=== PATIENT | male | born 1990 | race American Indian/Alaskan Native ===

== ENCOUNTER 2017-09-21 20:24 | Emergency (ER) | payer MEDICAID ==
[2017-09-21 20:30] VITALS: BP 132/80; PULSE 99; RESP 16; TEMP 98.8; O2SAT 98
--- NOTE | 2017-09-21 21:08 | ED PDOC ---
Arrival/HPI - General Historian: Patient - History of Present Illness Time/Duration: Other (3 days) Symptom Onset: Gradual Symptom Course: Worsening Quality: Aching, Throbbing Severity Level: 4 - General Chief Complaint: ENT Problem Time Seen by Provider: 09/21/17 21:04 - History of Present Illness Narrative History of Present Illness (Text): 09/21/17 21:38 27yr old male presents today with 3 day history of nasal congestion and left ear pain. no fever/chills. no dizziness or weakness. no vomiting/diarrhea. no cough. no medications taken for pain at home. pt c/o throbbing pain to left ear. Denies decreased hearing. no headache. no other complaints. (Meka Ty) Past Medical History - Provider Review Nursing Documentation Reviewed: Yes - Travel History Have you recently traveled outside [place] w/in the past 3 mons?: No - Infectious Disease Hx of Infectious Diseases: None - Psychiatric Hx Substance Use: No - Anesthesia Hx Anesthesia: No Family/Social History - Physician Review Nursing Documentation Reviewed: Yes Family/Social History: Unknown Family HX Smoking Status: Never Smoked Hx Alcohol Use: Yes Frequency of alcohol use: Socially Hx Substance Use: No Allergies/Home Meds Allergies/Adverse Reactions: Allergies amoxicillin Allergy (Verified 09/21/17 20:27) RASH Review of Systems - Review of Systems Constitutional: absent: Fatigue, Fevers ENT: Sinus Congestion, Other (left ear pain) Respiratory: absent: SOB, Cough Cardiovascular: absent: Chest Pain, Palpitations Gastrointestinal: absent: Abdominal Pain, Nausea, Vomiting Genitourinary Male: absent: Dysuria Musculoskeletal: absent: Arthralgias Skin: absent: Rash, Pruritis Neurological: absent: Headache, Dizziness Psychiatric: absent: Anxiety, Depression Physical Exam Vital Signs Reviewed: Yes Temperature: Afebrile Blood Pressure: Normal Pulse: Regular Respiratory Rate: Normal Appearance: Positive for: Well-Appearing, Non-Toxic, Comfortable Pain Distress: None Mental Status: Positive for: Alert and Oriented X 3 - Systems Exam Head: Present: Atraumatic Conjunctiva: Present: Normal Ears: Present: Erythema (+ left tm erythema and canal edema and erythema), Other (no mastoid tenderness; ). No: NORMAL TM, Normal Canal, TM Bulging, TM Perf Mouth: Present: Moist Mucous Membranes Vital Signs Temp Pulse Resp BP Pulse Ox 09/21/17 20:27 98.8 F 99 H 16 132/80 98 Medical Decision Making ED Course and Treatment: 09/21/17 21:49 Patient is nontoxic well appearing in no distress. Vital signs are stable motrin zithromax po I advised follow up with primary care physician within the next 2 days, advised to increase fluids take medications as prescribed and return if symptoms worsen persist or if new symptoms develop advised f/u with ENT specialist within the next 2 days. Patient verbalizes understanding of discharge instructions and need for immediate followup. all aspects of this case were discussed the attending of record. IMPRESSION; otitis media Motrin every 6 hours as needed for pain/fever reduction Increase fluids zithromax daily 4 days floxin otic; 10 drops to affected ear once daily flonase; 2 sprays each nostril once daily. Follow up primary care physician within the next 2 days Follow up with the ENT specialist within the next 2 days. Return if symptoms worsen persist or if the symptoms develop (Meka Ty) - Medication Orders Current Medication Orders: Discontinued Medications Azithromycin (Zithromax) 500 mg PO STAT STA PRN Reason: Protocol Stop: 09/21/17 21:05 Last Admin: 09/21/17 21:26 Dose: 500 mg Ibuprofen (Motrin Tab) 600 mg PO STAT STA Stop: 09/21/17 21:06 Last Admin: 09/21/17 21:26 Dose: 600 mg MAR Pain/Vitals Document 09/21/17 21:26 RD (Rec: 09/21/17 21:26 RD [facility] [id number]) Pain Reassessment Is This A Pain ReAssessment? No Sleep Is patient sleeping during reassessment? No Presence of Pain Presence of Pain Yes Disposition/Present on Arrival - Present on Arrival Any Indicators Present on Arrival: No History of DVT/PE: No History of Uncontrolled Diabetes: No Urinary Catheter: No History of Decub. Ulcer: No History Surgical Site Infection Following: None - Disposition Have Diagnosis and Disposition been Completed?: Yes Disposition Time: 21:05 Patient Plan: Discharge - Disposition Diagnosis: Otitis externa, Otitis media Disposition: HOME/ ROUTINE Condition: GOOD Discharge Instructions (ExitCare): Otitis Externa (ED), Otitis Media (ED) Additional Instructions: Motrin every 6 hours as needed for pain/fever reduction Increase fluids zithromax daily 4 days floxin otic; 10 drops to affected ear once daily flonase; 2 sprays each nostril once daily. Follow up primary care physician within the next 2 days Follow up with the ENT specialist within the next 2 days. Return if symptoms worsen persist or if the symptoms develop Prescriptions: Azithromycin [Zithromax] 250 mg PO DAILY #4 tab Fluticasone Nasal [Flonase] 2 spr NS DAILY #1 spr Ibuprofen [Motrin] 600 mg PO Q6H PRN #20 tab PRN Reason: pain/fever reduction Ofloxacin Otic 0.3% [Floxin 0.3% Otic Soln] 10 drop DAILY #1 bottle Referrals: Steph Armas MD [Staff Provider] - Follow up with primary Fernando Prince DO [Staff Provider] - Follow up with primary Forms: [facility] (Kosovan), WORK NOTE
== END 2017-09-21 21:26 | disposition home or self-care (01) ==
LOC: ED 20:24
DX: H60.92 Unspecified otitis externa, left ear (principal); H66.92 Otitis media, unspecified, left ear

== ENCOUNTER 2017-12-23 12:50 | Inpatient (IN) | payer MEDICAID ==
[2017-12-23 13:15] VITALS: BMI 23.7
[2017-12-23 14:22] LABS: BASO # 0.03 K/mm3 (0.0-2.0); BASO % 0.4 % (0.0-3.0); EOS # 0.1 (0.0-0.7); EOS % 0.7 % (1.5-5.0); GRAN # 3.93 (1.4-6.5); GRAN % 58.6 % (50.0-68.0); HEMOGLOBIN 15.3 g/dL (14.0-18.0); LYMPH # 2.2 (1.2-3.4); LYMPH % 32.7 % (22.0-35.0); MEAN CELL VOLUME 86.3 fl (80.0-105.0); MEAN CORPUSCULAR HEMOGLOBIN 29.9 pg (25.0-35.0); MEAN CORPUSCULAR HGB CONC 34.6 g/dl (31.0-37.0); MEAN PLATELET VOLUME 10.3 fl (7.0-11.0); MONO # 0.5 (0.1-0.6); MONO % 7.6 % (1.0-6.0); RBC 5.12 10^6/uL (3.5-6.1); RED CELL DISTRIBUTION WIDTH 13.1 % (11.5-14.5); WHITE BLOOD COUNT 6.7 10^3/ul (4.5-11.0)
[2017-12-23 14:43] LABS: ALB/GLOB RATIO 1.2 (1.1-1.8); ALBUMIN 4.2 g/dL (3.0-4.8); ALT/SGPT 52 U/L (7-56); AST/SGOT 63 U/L (17-59); BLOOD UREA NITROGEN 13 mg/dL (7-21); CALCIUM 9.9 mg/dL (8.4-10.5); GFR AFRICAN-AMERICAN > 60; GFR NON-AFRICAN AMERICAN > 60
[2017-12-23 15:24] LABS: ACETAMINOPHEN < 10.0 ug/ml (10.0-20.0); SALICYLATE < 1 mg/dL (2.0-20.0)
--- NOTE | 2017-12-23 15:24 | ED PDOC ---
Arrival/HPI - General Chief Complaint: Psychiatric Evaluation Time Seen by Provider: 12/23/17 13:12 Historian: Patient - History of Present Illness Narrative History of Present Illness (Text): 12/23/17 15:05 27yo male who present with complaint of depression and stress. Patient states he is having problem with his family members. 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 States he is trying to a solution, but feels stressed and depressed. Notes that he was placed on antipsychotic medications for unknown diagnosis. He denies SI/HI, hallucinations, any somatic complaint. Past Medical History - Provider Review Nursing Documentation Reviewed: Yes - Infectious Disease Hx of Infectious Diseases: None - Psychiatric Hx Bipolar Disorder: Yes Hx Substance Use: No - Anesthesia Hx Anesthesia: No Family/Social History - Physician Review Nursing Documentation Reviewed: Yes Family/Social History: Unknown Family HX Smoking Status: Never Smoked Hx Alcohol Use: Yes Hx Substance Use: No Allergies/Home Meds Allergies/Adverse Reactions: Allergies amoxicillin Allergy (Verified 12/23/17 13:12) RASH Home Medications: Home Meds Medication Instructions Recorded Confirmed Folic Acid 1 mg PO DAILY 12/23/17 12/23/17 Gabapentin [Neurontin] 300 mg PO DAILY 12/23/17 12/23/17 Risperidone [Risperdal] 1 mg PO DAILY 12/23/17 12/23/17 Valproic Acid [Depakene] 500 mg PO BID 12/23/17 12/23/17 Review of Systems - Physician Review All systems were reviewed & negative as marked: Yes - Review of Systems Constitutional: Normal Eyes: Normal ENT: Normal Respiratory: Normal Cardiovascular: Normal Gastrointestinal: Normal Genitourinary Male: Normal Musculoskeletal: Normal Skin: Normal Neurological: Normal Endocrine: Normal Hemo/Lymphatic: Normal Psychiatric: Depression Physical Exam Vital Signs Reviewed: Yes Vital Signs Temp Pulse Resp BP Pulse Ox 12/23/17 17:44 81 18 97 12/23/17 17:33 98.1 F 80 18 139/87 98 12/23/17 13:14 98.0 F 78 17 141/89 99 Temperature: Afebrile Blood Pressure: Normal Pulse: Regular Respiratory Rate: Normal Appearance: Positive for: Well-Appearing, Non-Toxic, Comfortable Pain Distress: None Mental Status: Positive for: Alert and Oriented X 3 - Systems Exam Head: Present: Atraumatic, Normocephalic Pupils: Present: PERRL Extroacular Muscles: Present: EOMI Conjunctiva: Present: Normal Mouth: Present: Moist Mucous Membranes Neck: Present: Normal Range of Motion Respiratory/Chest: Present: Clear to Auscultation, Good Air Exchange. No: Respiratory Distress, Accessory Muscle Use Cardiovascular: Present: Regular Rate and Rhythm, Normal S1, S2. No: Murmurs Abdomen: Present: Normal Bowel Sounds. No: Tenderness, Distention, Peritoneal Signs Back: Present: Normal Inspection Upper Extremity: Present: Normal Inspection. No: Cyanosis, Edema Lower Extremity: Present: Normal Inspection. No: Edema Neurological: Present: GCS=15, CN II-XII Intact, Speech Normal Skin: Present: Warm, Dry, Normal Color. No: Rashes Psychiatric: Present: Alert, Oriented x 3, Normal Insight, Normal Concentration , Depressed Mood Medical Decision Making ED Course and Treatment: 12/23/17 19:48 PT was medically cleared for psychiatric evaluation. He was seen in ED by PES augustin and admitted to Dr. Carrasco . - Lab Interpretations Lab Results: 12/23/17 14:09 12/23/17 14:09 Lab Results 12/23/17 15:30: Urine Opiates Screen Negative, Urine Methadone Screen Negative, Ur Barbiturates Screen Negative, Ur Phencyclidine Scrn Negative, Ur Amphetamines Screen Negative, U Benzodiazepines Scrn Negative, U Oth Cocaine Metabols Negative, U Cannabinoids Screen Negative 12/23/17 15:30: Urine Color Yellow, Urine Appearance Clear, Urine pH 7.0, Ur Specific [place] 1.010, Urine Protein Negative, Urine Glucose (UA) Negative, Urine Ketones Trace H, Urine Blood Negative, Urine Nitrate Negative, Urine Bilirubin Negative, Urine Urobilinogen 0.2, Ur Leukocyte Esterase Negative 12/23/17 14:09: Alcohol, Quantitative < 10 12/23/17 14:09: Salicylates < 1 L, Acetaminophen < 10.0 L 12/23/17 14:09: Sodium 141, Potassium 4.6, Chloride 103, Carbon Dioxide 25, Anion Gap 18, BUN 13, Creatinine 0.9, Est GFR ( Amer) > 60, Est GFR (Non- Af Amer) > 60, Random Glucose 85, Calcium 9.9, Total Bilirubin 0.4, AST 63 H, ALT 52, Alkaline Phosphatase 60, Total Protein 7.7, Albumin 4.2, Globulin 3.5, Albumin/Globulin Ratio 1.2 12/23/17 14:09: WBC 6.7, RBC 5.12, Hgb 15.3, Hct 44.2, MCV 86.3, MCH 29.9, MCHC 34.6, RDW 13.1, Plt Count 245, MPV 10.3, Gran % 58.6, Lymph % (Auto) 32.7, [place] % (Auto) 7.6 H, Eos % (Auto) 0.7 L, Baso % (Auto) 0.4, Gran # 3.93, Lymph # ( Auto) 2.2, [place] # (Auto) 0.5, Eos # (Auto) 0.1, Baso # (Auto) 0.03 - Medication Orders Current Medication Orders: Acetaminophen (Tylenol 325mg Tab) 650 mg PO Q4 PRN PRN Reason: Pain, Mild (1-3) Al Hydrox/Mg Hydrox/Simethicone (Maalox Plus 30 Ml) 30 ml PO DAILY PRN PRN Reason: Upset Stomach Diphenhydramine HCl (Benadryl) 50 mg IM Q6H PRN PRN Reason: Agitation Diphenhydramine HCl (Benadryl) 50 mg PO Q6H PRN PRN Reason: Agitation Divalproex Sodium (Depakote Dr (*Bid*)) 500 mg PO AMHS CHANTELLE PRN Reason: Protocol Gabapentin (Neurontin) 300 mg PO TID CHANTELLE PRN Reason: Protocol Haloperidol (Haldol) 5 mg PO Q6H PRN; Protocol PRN Reason: Agitation Haloperidol Lactate (Haldol) 5 mg IM Q6H PRN; Protocol PRN Reason: Agitation Lorazepam (Ativan) 2 mg PO Q6H PRN; Protocol PRN Reason: Anxiety Lorazepam (Ativan) 2 mg IM Q6H PRN; Protocol PRN Reason: Anxiety Magnesium Hydroxide (Milk Of Magnesia) 30 ml PO DAILY PRN PRN Reason: Constipation Risperidone (Risperdal Tab) 1 mg PO BID CHANTELLE PRN Reason: Protocol Risperidone (Risperdal Tab) 1 mg PO HS CHANTELLE PRN Reason: Protocol Zolpidem Tartrate (Ambien) 5 mg PO HS PRN; Protocol PRN Reason: Insomnia Disposition/Present on Arrival - Present on Arrival Any Indicators Present on Arrival: No History of DVT/PE: No History of Uncontrolled Diabetes: No Urinary Catheter: No History of Decub. Ulcer: No History Surgical Site Infection Following: None - Disposition Have Diagnosis and Disposition been Completed?: Yes Diagnosis: Depression Disposition: HOSPITALIZED Disposition Time: 18:00 Patient Plan: Admission Patient Problems: Current Active Problems Problem Status Onset Depression Acute Condition: FAIR
[2017-12-23 15:51] LABS: URINE APPEARANCE CLEAR (CLEAR); URINE BILIRUBIN NEGATIVE (NEGATIVE); URINE BLOOD NEGATIVE (NEGATIVE); URINE COLOR YELLOW (YELLOW); URINE GLUCOSE (UA) NEGATIVE (NEGATIVE); URINE LEUKOCYTE ESTERASE NEGATIVE Leu/uL (NEGATIVE); URINE PROTEIN NEGATIVE mg/dL (<30 mg/dL); URINE UROBILINOGEN 0.2 E.U./dL (<1 E.U./dL)
[2017-12-23 16:30] LABS: BARBITURATES, UR NEGATIVE (NEGATIVE); BENZODIAZEPINES, UR NEGATIVE (NEGATIVE); OPIATES, UR NEGATIVE (NEGATIVE); PHENCYCLIDINE, UR NEGATIVE (NEGATIVE)
[2017-12-23] MEDS ORDERED: Magnesium Hydroxide Susp 30 ml UD PO PRN (18:46)
[2017-12-23] MEDS ORDERED: Alum-Mag Hydrox-Simethicone Susp (30 mL) PO PRN (18:46)
--- NOTE | 2017-12-23 19:00 | PCM.BM ---
<Fernando Kamara - Last Filed: 12/23/17 18:59> Treatment Plan Problems - Problems identified on initial assessmt Hopelessness Date Initiated: 12/23/17 Time Initiated: 18:59 Assessment reference: NA Status: Active Priority: 1 Worthlessness Date Initiated: 12/23/17 Time Initiated: 18:59 Assessment reference: NA Status: Active Priority: 2 Ineffective Coping Date Initiated: 12/23/17 Time Initiated: 18:59 Assessment reference: NA Status: Active Priority: 3 Altered Sleep Patterns Date Initiated: 12/23/17 Time Initiated: 18:59 Assessment reference: NA Status: Active Priority: 4 <Lizzette Guevara - Last Filed: 12/24/17 15:23> Family Contact - Outside Agency [facility] involvment: Information-sharing Agency contact name: Keesha Johnson, therapist Agency contact number: [phone]
[2017-12-23] MEDS ORDERED: DiphenhydrAMINE 50 mg/ml Inj IM PRN (19:01)
[2017-12-23] MEDS: Divalproex 250 mg DR (BID formulation) PO SCH (21:24)
[2017-12-24 07:35] VITALS: RESP 20
[2017-12-24 08:24] LABS: GLUCOSE,FASTING 83 mg/dL (65-110); HDL CHOLESTEROL 43 mg/dL (29-60)
[2017-12-24 08:31] LABS: FREE T4 1.08 ng/dL (0.78-2.19)
[2017-12-24 08:34] LABS: LDL CHOLESTEROL 94 mg/dL (0-129)
[2017-12-24] MEDS: Divalproex 250 mg DR (BID formulation) PO SCH ×2 (09:56→22:07)
--- NOTE | 2017-12-24 11:35 | CARD ---
APPROVED REPORT EKG Measurement Heart [id number] <Conclusion> Sinus rhythm with marked sinus arrhythmia.
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
[2017-12-25] MEDS: Divalproex 250 mg DR (BID formulation) PO SCH ×2 (10:24→21:11)
[2017-12-25] MEDS: Multivitamin With Minerals Tab PO SCH (10:25)
--- NOTE | 2017-12-25 13:27 | PCM.PYCHPN ---
Psychiatric Progress Note - Psychiatric Progress Note Patient seen today, length of contact: 30min Patient Chief Complaint: " I feel little better" Problems Identified/Issues Discussed: Suicide/ homicide prevention, past psychiatric h/o, current psychiatric symptoms , medical problems, risk/benefits and alternatives of medications, medications compliance, coping strategies, substance abuse h/o, relapse prevention, importance of follow up with psychiatrist and therapist, discharge plan. Medical Problems: see HPI Diagnostic Results: 12/23/17 14:09 12/23/17 14:09 Lab Results 12/24/17 07:30: Free T4 1.08, TSH 3rd Generation 1.09 12/24/17 07:30: Valproic Acid 60 12/24/17 07:30: RPR Nonreactive 12/24/17 07:30: Fasting Glucose 83, Triglycerides 52, Cholesterol 154, LDL Cholesterol Direct 94, HDL Cholesterol 43 12/23/17 15:30: Urine Opiates Screen Negative, Urine Methadone Screen Negative, Ur Barbiturates Screen Negative, Ur Phencyclidine Scrn Negative, Ur Amphetamines Screen Negative, U Benzodiazepines Scrn Negative, U Oth Cocaine Metabols Negative, U Cannabinoids Screen Negative 12/23/17 15:30: Urine Color Yellow, Urine Appearance Clear, Urine pH 7.0, Ur Specific [place] 1.010, Urine Protein Negative, Urine Glucose (UA) Negative, Urine Ketones Trace H, Urine Blood Negative, Urine Nitrate Negative, Urine Bilirubin Negative, Urine Urobilinogen 0.2, Ur Leukocyte Esterase Negative 12/23/17 14:09: Alcohol, Quantitative < 10 12/23/17 14:09: Salicylates < 1 L, Acetaminophen < 10.0 L 12/23/17 14:09: Sodium 141, Potassium 4.6, Chloride 103, Carbon Dioxide 25, Anion Gap 18, BUN 13, Creatinine 0.9, Est GFR ( Amer) > 60, Est GFR (Non- Af Amer) > 60, Random Glucose 85, Calcium 9.9, Total Bilirubin 0.4, AST 63 H, ALT 52, Alkaline Phosphatase 60, Total Protein 7.7, Albumin 4.2, Globulin 3.5, Albumin/Globulin Ratio 1.2 12/23/17 14:09: WBC 6.7, RBC 5.12, Hgb 15.3, Hct 44.2, MCV 86.3, MCH 29.9, MCHC 34.6, RDW 13.1, Plt Count 245, MPV 10.3, Gran % 58.6, Lymph % (Auto) 32.7, [place] % (Auto) 7.6 H, Eos % (Auto) 0.7 L, Baso % (Auto) 0.4, Gran # 3.93, Lymph # ( Auto) 2.2, [place] # (Auto) 0.5, Eos # (Auto) 0.1, Baso # (Auto) 0.03 Vital Signs Temp Pulse Resp BP Pulse Ox 12/25/17 07:33 97.5 F L 59 L 20 98/62 L 12/24/17 07:35 97.2 F L 71 20 110/66 12/23/17 19:01 98.1 F 68 16 123/80 98 12/23/17 17:44 81 18 97 12/23/17 17:33 98.1 F 80 18 139/87 98 12/23/17 13:14 98.0 F 78 17 141/89 99 DSM 5 Symptoms Update: shortly pt is 27yo AAM, ?history of mental illness, one previous psych admission at [facility] in October 2017, not know previous suicidal attempts, pt was raised in foster care, pt was referred by pt's therapist after pt sent text message to his aunt " is upon us." pt initially refused to sign himself to the hospital, but changed his mind and willing to be admitted. pt as seen at the tx team meeting room with the therapist. tp is more engaged into the conversation pt reported "I feel better, my thoughts are clearer". pt said that he slept well, reported to have good appetite and sleep. as per staff pt was pleasant and cooperative, socially appropriate. at times pt could be disorganized, but overall improving. pt tolerates meds well, no side effects observed or reported. AIMS 0, no EPS. DSM 5 Diagnosis: r/o schizophrenia r/o Psychosis r/o mood disorder r/o borderline personality disorder Medication Change: Yes (risperdal increased) Medical Record Reviewed: Yes Consults ordered or reviewed: pt was seen by medical team in ED. Mental Status Examination - Cognitive Function Orientation: Person, Place, Situation Attention: Poor (but with some improvement) Concentration: Poor (with some improvement) Association: WNL - Mood Mood: Depressed - Affect Affect: Constricted - Formal Thought Process Formal Thought Process: Other (there is some disorganization in thought process) - Suicidal Ideation Suicidal Ideation: No - Homicidal Ideation Homicidal Ideation: No Goal/Treatment Plan - Goal/Treatment Plan Need for Continued Stay: Remain at risks for inpatient hospitalization, Severe depression anxiety, Discharge may exacerbated symptoms, Severe functional impairment Progress Toward Problem(s) and Goals/Treatment Plan: milieu/structure/supportive therapy Gabapentin [Neurontin] 300 mg PO tid for mood stabilization Risperidone [Risperdal] 2mg po amhs for psychosis and mood stabilization Valproic Acid [Depakene] 500 mg PO BID will be continued depakote level was 60, most likely pt was compliant with meds PRN meds for insomnia/possible agitation collaterals from pt's family or therapist SW consultation for discharge plan and social issues Family involvement Follow up on labs Will monitor closely Pt was educated about risk/benefits and alternatives of medications, coping strategies (safety plan, suicide prevention), relapse prevention, importance of follow up with psychiatrist and therapist, stay away from drugs/alcohol/smoking Estimated Date of D/C: 12/29/17
[2017-12-26] MEDS: Divalproex 250 mg DR (BID formulation) PO SCH ×2 (09:28→21:21)
[2017-12-26] MEDS: Multivitamin With Minerals Tab PO SCH (09:28)
--- NOTE | 2017-12-26 13:39 | PCM.PYCHPN ---
Psychiatric Progress Note - Psychiatric Progress Note Patient seen today, length of contact: 30min Patient Chief Complaint: " I feel little better" Problems Identified/Issues Discussed: Suicide/ homicide prevention, past psychiatric h/o, current psychiatric symptoms , medical problems, risk/benefits and alternatives of medications, medications compliance, coping strategies, substance abuse h/o, relapse prevention, importance of follow up with psychiatrist and therapist, discharge plan. Medical Problems: see HPI Diagnostic Results: 12/23/17 14:09 12/23/17 14:09 Lab Results 12/24/17 07:30: Free T4 1.08, TSH 3rd Generation 1.09 12/24/17 07:30: Valproic Acid 60 12/24/17 07:30: RPR Nonreactive 12/24/17 07:30: Fasting Glucose 83, Triglycerides 52, Cholesterol 154, LDL Cholesterol Direct 94, HDL Cholesterol 43 12/23/17 15:30: Urine Opiates Screen Negative, Urine Methadone Screen Negative, Ur Barbiturates Screen Negative, Ur Phencyclidine Scrn Negative, Ur Amphetamines Screen Negative, U Benzodiazepines Scrn Negative, U Oth Cocaine Metabols Negative, U Cannabinoids Screen Negative 12/23/17 15:30: Urine Color Yellow, Urine Appearance Clear, Urine pH 7.0, Ur Specific [place] 1.010, Urine Protein Negative, Urine Glucose (UA) Negative, Urine Ketones Trace H, Urine Blood Negative, Urine Nitrate Negative, Urine Bilirubin Negative, Urine Urobilinogen 0.2, Ur Leukocyte Esterase Negative 12/23/17 14:09: Alcohol, Quantitative < 10 12/23/17 14:09: Salicylates < 1 L, Acetaminophen < 10.0 L 12/23/17 14:09: Sodium 141, Potassium 4.6, Chloride 103, Carbon Dioxide 25, Anion Gap 18, BUN 13, Creatinine 0.9, Est GFR ( Amer) > 60, Est GFR (Non- Af Amer) > 60, Random Glucose 85, Calcium 9.9, Total Bilirubin 0.4, AST 63 H, ALT 52, Alkaline Phosphatase 60, Total Protein 7.7, Albumin 4.2, Globulin 3.5, Albumin/Globulin Ratio 1.2 12/23/17 14:09: WBC 6.7, RBC 5.12, Hgb 15.3, Hct 44.2, MCV 86.3, MCH 29.9, MCHC 34.6, RDW 13.1, Plt Count 245, MPV 10.3, Gran % 58.6, Lymph % (Auto) 32.7, [place] % (Auto) 7.6 H, Eos % (Auto) 0.7 L, Baso % (Auto) 0.4, Gran # 3.93, Lymph # ( Auto) 2.2, [place] # (Auto) 0.5, Eos # (Auto) 0.1, Baso # (Auto) 0.03 Vital Signs Temp Pulse Resp BP Pulse Ox 12/25/17 07:33 97.5 F L 59 L 20 98/62 L 12/24/17 07:35 97.2 F L 71 20 110/66 12/23/17 19:01 98.1 F 68 16 123/80 98 12/23/17 17:44 81 18 97 12/23/17 17:33 98.1 F 80 18 139/87 98 12/23/17 13:14 98.0 F 78 17 141/89 99 DSM 5 Symptoms Update: shortly pt is 27yo AAM, ?history of mental illness, one previous psych admission at [facility] in October 2017, not know previous suicidal attempts, pt was raised in foster care, pt was referred by pt's therapist after pt sent text message to his aunt " is upon us." pt initially refused to sign himself to the hospital, but changed his mind and willing to be admitted. pt as seen next to the nursing station, more pleasant, pt is more engaged into the conversation pt reported "I feel better, my thoughts are clearer", some suspiciousness, but no agitation or aggression. pt said that he slept well, reported to have good appetite and sleep. as per staff pt was pleasant and cooperative, socially appropriate. at times pt could be disorganized, but overall improving. pt tolerates meds well, no side effects observed or reported. AIMS 0, no EPS. DSM 5 Diagnosis: r/o schizophrenia r/o Psychosis r/o mood disorder r/o borderline personality disorder Medication Change: Yes (risperdal increased) Medical Record Reviewed: Yes Mental Status Examination - Cognitive Function Orientation: Person, Place, Situation Attention: Poor (but with some improvement) Concentration: Poor (with some improvement) Association: WNL - Mood Mood: Depressed - Affect Affect: Constricted - Formal Thought Process Formal Thought Process: Other (there is some disorganization in thought process) - Suicidal Ideation Suicidal Ideation: No - Homicidal Ideation Homicidal Ideation: No Goal/Treatment Plan - Goal/Treatment Plan Need for Continued Stay: Remain at risks for inpatient hospitalization, Severe depression anxiety, Discharge may exacerbated symptoms, Severe functional impairment Progress Toward Problem(s) and Goals/Treatment Plan: milieu/structure/supportive therapy Gabapentin [Neurontin] 300 mg PO tid for mood stabilization Risperidone [Risperdal] 2mg po amhs for psychosis and mood stabilization Valproic Acid [Depakene] 500 mg PO BID will be continued depakote level was 60, most likely pt was compliant with meds PRN meds for insomnia/possible agitation collaterals from pt's family or therapist SW consultation for discharge plan and social issues Family involvement Follow up on labs Will monitor closely Pt was educated about risk/benefits and alternatives of medications, coping strategies (safety plan, suicide prevention), relapse prevention, importance of follow up with psychiatrist and therapist, stay away from drugs/alcohol/smoking Estimated Date of D/C: 12/29/17
[2017-12-27] MEDS: Multivitamin With Minerals Tab PO SCH (09:16)
--- NOTE | 2017-12-27 09:29 | PCM.PYCHPN ---
Psychiatric Progress Note - Psychiatric Progress Note Patient seen today, length of contact: 25 min Patient Chief Complaint: "feeling pretty good" Problems Identified/Issues Discussed: I reviewed assessment and recent notes. Patient is 27yo AAM with one previous psych admission at [facility] in October 2017, who was referred by his therapist after pt sent text message to his aunt " is upon us.". Patient initially refused to sign himself into the hospital, but changed his mind. Patient is improving on the unit. Per staff notes, he has been pleasant and more engaged. Told staff that he was feeling better and thoughts were getting clearer. Patient told me this morning that he was "feeling pretty good". Patient feels hopeful. He denies perceptual disturbance and doesnt appear to be responding to internal stimuli. Doesn't appear paranoid or hypervigilant and denies paranoid thoughts. He is sleeping well and demonstrates a good appetite. Denies any major side effects from his medications except for "feeling a little sleepy". Patient is visible on unit. He has been watching tv with peers and socially appropriate. There were no behavioral issues overnight. Diagnostic Results: r/o schizophrenia r/o Psychosis r/o mood disorder r/o borderline personality disorder Medication Change: Yes (risperdal increased) Medical Record Reviewed: Yes Mental Status Examination - Cognitive Function Orientation: Person, Place, Situation Attention: WNL (but with some improvement) Concentration: Poor (with some improvement) Association: WNL - Mood Mood: Depressed ("feeling pretty good") - Affect Affect: Constricted - Formal Thought Process Formal Thought Process: Other ( Patient's thought process seems to be clearing) - Suicidal Ideation Suicidal Ideation: No - Homicidal Ideation Homicidal Ideation: No Goal/Treatment Plan - Goal/Treatment Plan Need for Continued Stay: Remain at risks for inpatient hospitalization, Severe depression anxiety, Discharge may exacerbated symptoms, Severe functional impairment Progress Toward Problem(s) and Goals/Treatment Plan: Group, milieu and supportive tx Vitals reviewed and noted below 12/26/17 12/26/17 07:05 16:00 Temperature 97.5 F L Pulse Rate 71 95 H Respiratory 20 Rate Blood Pressure 99/59 L 109/55 L No new weekend labs thus far CONTINUE MEDICATIONS Neurontin 300 mg PO tid for mood stabilization Risperdal 2mg po amhs for psychosis and mood stabilization Depakote 500 mg PO BID for mood stabilization 12/24/17 07:30 Valproic Acid 60 Ambien 5 mg HS prn: insomnia Estimated Date of D/C: 12/29/17
[2017-12-27] MEDS: Divalproex 250 mg DR (BID formulation) PO SCH ×2 (10:32→22:15)
[2017-12-28 06:47] VITALS: O2SAT 97
[2017-12-28] MEDS: Divalproex 250 mg DR (BID formulation) PO SCH ×2 (09:26→21:46)
[2017-12-28] MEDS: Multivitamin With Minerals Tab PO SCH (09:27)
--- NOTE | 2017-12-28 09:39 | PCM.PYCHPN ---
Psychiatric Progress Note - Psychiatric Progress Note Patient seen today, length of contact: 25 min Patient Chief Complaint: "feeling pretty good" Problems Identified/Issues Discussed: I reviewed assessment and recent notes. Patient is 27 yo AAM with one previous psych admission at [facility] in October 2017, who was referred by his therapist after pt sent text message to his aunt " is upon us.". Patient initially refused to sign himself into the hospital, but changed his mind. Patient is improving on the unit. Per staff notes, he has been pleasant and more engaged. Told staff that he was feeling better and thoughts were getting clearer. Patient told me this morning that he was "feeling well". Patient feels hopeful. He denies perceptual disturbance and doesn't appear to be responding to internal stimuli. Doesn't appear paranoid or hypervigilant and denies paranoid thoughts. He is sleeping well and demonstrates a good appetite. Still denies any major side effects from his medications except for "feeling a little sleepy". Patient is visible on unit. He has been watching tv with peers and socially appropriate. Attending groups. There were no behavioral issues over the weekend. Diagnostic Results: r/o schizophrenia r/o Psychosis r/o mood disorder r/o borderline personality disorder Medication Change: Yes (risperdal increased) Medical Record Reviewed: Yes Mental Status Examination - Cognitive Function Orientation: Person, Place, Situation Attention: WNL (but with some improvement) Concentration: Poor (with some improvement) Association: WNL - Mood Mood: Depressed ("feeling pretty good") - Affect Affect: Constricted - Formal Thought Process Formal Thought Process: Other ( Patient's thought process seems to be clearing) - Suicidal Ideation Suicidal Ideation: No - Homicidal Ideation Homicidal Ideation: No Goal/Treatment Plan - Goal/Treatment Plan Need for Continued Stay: Remain at risks for inpatient hospitalization, Severe depression anxiety, Discharge may exacerbated symptoms, Severe functional impairment Progress Toward Problem(s) and Goals/Treatment Plan: Group, milieu and supportive tx Vitals reviewed and noted below 12/28/17 06:45 Temperature 97.5 F L Pulse Rate 84 Respiratory 20 Rate Blood Pressure 117/57 L No new weekend labs CONTINUE MEDICATIONS Neurontin 300 mg PO tid for mood stabilization Risperdal 2mg po amhs for psychosis and mood stabilization Depakote 500 mg PO BID for mood stabilization 12/24/17 07:30 Valproic Acid 60 Ambien 5 mg HS prn: insomnia Estimated Date of D/C: 12/29/17
[2017-12-29 07:40] VITALS: BP 102/66; PULSE 69; TEMP 97.8
[2017-12-29] MEDS: Multivitamin With Minerals Tab PO SCH (08:37)
[2017-12-29] MEDS: Divalproex 250 mg DR (BID formulation) PO SCH ×2 (08:37→13:01)
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
== END 2017-12-29 16:24 | disposition home or self-care (01) | DRG 430 ==
LOC: ED 12:50 → PSYC 18:26
PROVIDERS: ADMIT Psychiatry & Neurology Psychiatry; ATTEND Psychiatry & Neurology Psychiatry
PROC: GZ3ZZZZ Medication Management (ICD-10-PCS; principal; 2017-12-23)
DX: F32.3 Major depressive disorder, single episode, severe with psychotic features (principal); G47.00 Insomnia, unspecified